=== PATIENT | male | born 1980 ===

== ENCOUNTER 2017-05-06 05:03 | Emergency (ER) | payer SELFPAY ==
[2017-05-06 05:21] VITALS: BP 118/69; RESP 16; TEMP 98; O2SAT 100
--- NOTE | 2017-05-06 05:39 | ED PDOC ---
HPI: Chest Pain Time Seen by Provider: 05/06/17 05:15 Chief Complaint (Nursing): Chest Pain Chief Complaint (Provider): Chest Pain History Per: Patient History/Exam Limitations: no limitations Onset/Duration Of Symptoms: Hrs (17:00 yesterday, 12 hours ago) Current Symptoms Are (Timing): Still Present Additional Complaint(s): Patient is a 36 y/o male complaining of acute onset of substernal chest pain that began x12 hours, and has a history of kidney stones. He notes that the pain is worsened when he breathes or lifts his left arm, and denies taking any medications for the pain [employer]. He also denies nausea, vomiting, diaphoresis, fever, and shortness of breath. PCP: JESSA Past Medical History Reviewed: Historical Data, Nursing Documentation, Vital Signs Vital Signs: Last Vital Signs Temp 98.0 F 05/06/17 05:18 Pulse 82 05/06/17 05:27 Resp 16 05/06/17 05:18 BP 118/69 05/06/17 05:18 Pulse Ox 100 05/06/17 06:53 - Medical History PMH: Kidney Stones - Family History Family History: States: Unknown Family Hx - Home Medications Home Medications: Ambulatory Orders Medication Instructions Recorded Azithromycin [Zithromax Z-Blair] 250 mg PO DAILY #1 packet 02/26/16 Ibuprofen [Motrin] 600 mg PO Q6 PRN #15 tab 02/26/16 Azithromycin [Zithromax] 250 mg PO DAILY #4 tab 10/23/16 Naproxen [Naprosyn] 500 mg PO Q12 PRN #14 tablet 10/23/16 - Allergies Allergies/Adverse Reactions: Allergies Allergy/AdvReac Type Severity Reaction Status Date / Time Penicillins Allergy REDNESS Verified 05/06/17 05:17 Review of Systems ROS Statement: Except As Marked, All Systems Reviewed And Found Negative Constitutional: Negative for: Fever, Sweats Cardiovascular: Positive for: Chest Pain Respiratory: Negative for: Shortness of Breath Gastrointestinal: Negative for: Nausea, Vomiting Physical Exam - Reviewed Nursing Documentation Reviewed: Yes Vital Signs Reviewed: Yes - Physical Exam Appears: Positive for: No Acute Distress Head Exam: Positive for: ATRAUMATIC, NORMOCEPHALIC Skin: Positive for: Normal Color, Warm, Dry. Negative for: Diaphoresis Eye Exam: Positive for: Normal appearance. Negative for: Scleral icterus ENT: Positive for: Normal ENT Inspection Neck: Positive for: Normal, Supple Cardiovascular/Chest: Positive for: Regular Rate, Rhythm. Negative for: Murmur Respiratory: Positive for: Normal Breath Sounds. Negative for: Wheezing Gastrointestinal/Abdominal: Positive for: Normal Exam Neurologic/Psych: Positive for: Alert, Oriented (x3) - Laboratory Results Result Diagrams: 05/06/17 05:34 05/06/17 05:34 - ECG O2 Sat by Pulse Oximetry: 100 (RA) Pulse Ox Interpretation: Normal Medical Decision Making Medical Decision Making: Time: 05:24 Initial Impression: 36 y/o make with reproducible chest pain Initial Plan: --EKG --Labs --Drug Screen --Troponin I --Chest XR --Ketorolac 10 mg IVP --Heplock Insertion --Reevaluation 06:35 Labs reviewed, no significant abnormalities. CXR: NAD. Patient is medically stable for discharge. Will follow up with the clinic. Diagnosis: Atypical chest pain Condition: Stable Scribe Attestation: Documented by Ankit Martinez, acting as a scribe for Rodolfo Coulter MD Provider Scribe Attestation: All medical record entries made by the Scribe were at my direction and personally dictated by me. I have reviewed the chart and agree that the record accurately reflects my personal performance of the history, physical exam, medical decision making, and the department course for this patient. I have also personally directed, reviewed, and agree with the discharge instructions and disposition. Disposition - Clinical Impression Clinical Impression: Atypical chest pain - Patient ED Disposition Is Patient to be Admitted: No - Disposition Referrals: [facility] [Outside] Disposition Time: 06:35 Condition: STABLE Instructions: Noncardiac Chest Pain (ED) Forms: [employer] (Kazakh) Print Language: KAZAKH
[2017-05-06 05:40] VITALS: PULSE 82
[2017-05-06 06:05] LABS: BASO % 0.6 % (0.0-2.0); EOS # 0.1 K/uL (0.0-0.7); EOS % 1.3 % (0.0-4.0); LYMPH # 2.4 K/uL (1.0-4.3); LYMPH % 38.2 % (20.0-40.0); MEAN CELL VOLUME 91.4 fl (80.0-94.0); MEAN CORPUSCULAR HEMOGLOBIN 30.5 pg (27.0-31.0); MEAN CORPUSCULAR HGB CONC 33.4 g/dL (33.0-37.0); MEAN PLATELET VOLUME 9.3 fl (7.2-11.7); MONO # 0.5 K/uL (0.0-0.8); MONO % 7.8 % (0.0-10.0); NEUT # 3.3 K/uL (1.8-7.0); NEUT % 52.1 % (50.0-75.0); NRBC % 0.1 % (0.0-0.0); WHITE BLOOD COUNT 6.3 K/uL (4.8-10.8)
[2017-05-06 06:14] LABS: ALB/GLOB RATIO 1.6 (1.0-2.1); ALKALINE PHOSPHATASE 84 U/L (38-126); ALT/SGPT 32 U/L (21-72); AST/SGOT 17 U/L (17-59); BILIRUBIN,TOTAL 1.2 mg/dl (0.2-1.3); BLOOD UREA NITROGEN 17 mg/dl (9-20); CALCIUM 9.3 mg/dL (8.4-10.2); CARBON DIOXIDE 26 mmol/L (22-30); CHLORIDE 105 mmol/L (98-107); GFR AFRICAN-AMERICAN > 60; GLUCOSE,RANDOM 98 mg/dL (75-110); POTASSIUM 3.8 MMOL/L (3.6-5.0); SODIUM 141 mmol/l (132-148); TOTAL PROTEIN 7.2 G/DL (6.3-8.2)
--- NOTE | 2017-05-06 09:42 | RAD ---
HISTORY: cp COMPARISON: No prior. TECHNIQUE: Chest PA and lateral FINDINGS: LUNGS: No active pulmonary disease. PLEURA: Mild biapical pleural thickening. No significant pleural effusion identified. No pneumothorax apparent. CARDIOVASCULAR: Normal. OSSEOUS STRUCTURES: No significant abnormalities. VISUALIZED UPPER ABDOMEN: Normal. OTHER FINDINGS: None. IMPRESSION: No active disease. Mild biapical pleural thickening.
--- NOTE | 2017-05-06 12:38 | CARD ---
APPROVED REPORT EKG Measurement Heart [id number] <Conclusion> Normal sinus rhythm with sinus arrhythmia Normal ECG
== END 2017-05-06 06:51 | disposition home or self-care (01) ==
LOC: H.ER 05:03
DX: R07.89 Other chest pain (principal); Z88.0 Allergy status to penicillin
CPT/HCPCS: 71020; 80053; 84484; 85025; 93005; 96374; 99282; G0480; J1885